=== PATIENT | female | born 1995 | race Caucasian/White ===

== ENCOUNTER 2017-06-20 | Emergency (ER) | payer SELFPAY ==
--- NOTE | 2017-06-20 00:21 | ED Physician Documentation ---
Abdominal Pain - HISTORIAN Historian: patient - HPI Stated Complaint: abdominal pain Chief Complaint: Abdominal Pain Onset: days ago (1) Duration: constant Timing: still present Context: other (she has an extensive GI history ). denies: out of country travel, bad food, recent trauma Severity: moderate Quality: pain, cramping, sharp Associated Symptoms: fever (she states she had one at home not sure of degree ) , nausea, diarrhea. denies: vomiting Exacerbated by: nothing Relieved by: nothing Further Comments: yes (She reports she had a "leaky colon" once and this is exactly how the pain felt. She states the pain is "all over" and she has no relief with OTC meds, position or heat or rest. She states she has had diarrhea today and it "has a terrible odor" She reports a fever at home she is not sure of the degree. She has no burning with urination. She states the pain is "bad" . ) - ROS CONST: no problems GI/: none CVS/RESP: none MS/SKIN/LYMPH: none NEURO/PSYCH: none - SOCIAL HX Smoking History: non-smoker Alcohol Use: none Drug Use: none - FAMILY HX Family History: none - PAST HX Past History: other (GI ) Ischemic Bowel Risk Factors: none Other History: none Surgeries/Procedures: none Immunizations: UTD Home Medications: Ambulatory Orders Medication Instructions Recorded NK [NK] 06/20/17 Allergies/Adverse Reactions: Allergies Allergy/AdvReac Type Severity Reaction Status Date / Time Sulfa (Sulfonamide Allergy Verified 06/20/17 00:21 Antibiotics) - VITAL SIGNS Vital Signs: Vital Signs Temp Pulse Resp BP Pulse Ox 97.8 F 82 16 117/68 99 06/20/17 00:00 06/20/17 03:50 06/20/17 03:50 06/20/17 03:50 06/20/17 03:50 - REVIEWED ASSESSMENTS Nursing Assessment Reviewed: Yes Vitals Reviewed: Yes Progress - Progress Progress: 0125: sleeping in bed. Results discussed. She is requesting no Zofran due to "not working as well as Phenergan" . No vomiting at this time. DG ED Results Lab/Radiology - Lab Results Lab Results: Lab Results 06/20/17 06/20/17 00:42 00:42 WBC 12.50 K/ul H K/ul (4.00-12.00) RBC 4.66 M/ul M/ul (3.90-5.20) Hgb 14.2 g/dL g/dL (12.0-16.0) Hct 42.3 % % (34.5-46.5) MCV 90.6 fl fl (80.0-100.0) MCH 30.6 pg pg (28.0-34.0) MCHC 33.7 g/dL g/dL (30.0-36.0) RDW 12.2 % % (11.3-14.3) Plt Count 346 K/mm3 K/mm3 (130-400) Neut % (Auto) 81.0 % H % (39.0-79.0) Lymph % (Auto) 10.3 % L % (16.0-50.0) [place] % (Auto) 4.6 % % (0.0-11.0) Eos % (Auto) 3.0 % % (0.0-6.8) Baso % (Auto) 0.2 (0.0-1.5) Neut # (Auto) 10.1 # k/uL H # k/uL (1.4-7.7) Lymph # (Auto) 1.3 # k/uL # k/uL (0.6-4.0) [place] # (Auto) 0.6 # k/uL # k/uL (0.0-0.9) Eos # (Auto) 0.4 # k/uL # k/uL (0.0-0.6) Baso # (Auto) 0.0 # k/uL # k/uL (0.0-0.5) Reactive Lymphs % 1.0 % % (0.0-5.0) Reactive Lymphs # 0.1 # k/uL # k/uL (0.0-0.8) Sodium 138 mmol/L mmol/L (136-145) Potassium 3.4 mmol/L L mmol/L (3.5-5.1) Chloride 105 mmol/L mmol/L (98-107) Carbon Dioxide 22 mmol/L mmol/L (22-30) BUN 11 mg/dL mg/dL (7-17) Creatinine 0.60 mg/dL mg/dL (0.52-1.04) Estimated Creat Clear 225 Est GFR ( Amer) > 60 (60 - ) Est GFR (Non-Af Amer) > 60 (60 - ) Glucose 121 mg/dL H mg/dL (74-106) Calcium 8.6 mg/dL mg/dL (8.4-10.2) Total Bilirubin 0.8 mg/dL mg/dL (0.2-1.3) AST 29 U/L U/L (15-46) ALT 35 U/L U/L (13-69) Alkaline Phosphatase 70 U/L U/L (38-126) Total Protein 6.6 g/dL g/dL (6.3-8.2) Albumin 4.0 g/dL g/dL (3.5-5.0) - Radiology Radiology Impressions: FINDINGS: Bibasilar atelectasis is present. No liver spleen lesion is seen. The stomach is fluid distended. The adrenal glands pancreas and gallbladder are normal. There is no aortic aneurysm. Normal appendix is present. Air fluid levels are present in the small bowel and colon probably related to ileus or gastroenteritis. The uterus and ovaries are within normal limits for age. There is levoscoliosis of the lumbar spine. IMPRESSION: Minimal bibasilar atelectasis. Negative appendix Air fluid levels in large and small bowel with a fluid distended stomach most consistent with ileus or gastroenteritis Electronically signed on June 20, 2017 1:17:39 AM CDT by: Ryder Disla - Orders Orders: ED Orders Category Date Time Status IV Started NOW Care 06/20/17 00:[address] ABD & PELVIS W/O CON Stat Exams 06/20/17 Taken CBC/PLATELET/DIFF Stat Lab 06/20/17 00:42 Completed CMP Stat Lab 06/20/17 00:42 Completed UA W/MICRO IF INDICATED Routine Lab 06/20/17 00:25 Ordered URINE HCG Stat Lab 06/20/17 00:26 Ordered 0.9 % Sodium Chloride [Normal Saline] 1,000 ml Med 06/20/17 00:27 Discontinued IV Q1H Ketorolac Tromethamine [Toradol] Med 06/20/17 01:21 Discontinued 30 mg IVP NOW ONE Promethazine HCl [Phenergan] Med 06/20/17 01:21 Discontinued 25 mg IM NOW ONE Abdominal Pain Physical Exam - Physical Exam General Appearance: alert, mild distress EENT: eye inspection normal, ENT inspection normal, pharynx normal, no signs of dehydration NECK: normal inspection RESPIRATORY: no resp distress, chest non-tender, breath sounds normal CVS: reg rate & rhythm, heart sounds normal, equal pulses, no murmur ABDOMEN: soft, normal bowel sounds, no distension, tenderness. No: guarding BACK: normal inspection SKIN: warm/dry, normal color EXTREMITIES: non-tender NEURO: oriented X3, CN's nml as tested, motor nml, sensation nml, cognition normal Vital Signs: Vital Signs Temp Pulse Resp BP Pulse Ox 97.8 F 82 16 117/68 99 06/20/17 00:00 06/20/17 03:50 06/20/17 03:50 06/20/17 03:50 06/20/17 03:50 Discharge Clincal Impression: Gastroenteritis Referrals: Primary Doctor,No [Primary Care Provider] - 2 Days Comments: 1. Call GI dr in AM 2. Clear liquids 3. Zofran 4 mg Take 1 by mouth every 8 hours as needed for nausea 4. Return to ER for any concerns Condition: Stable Disposition: 01 HOME, SELF-CARE Decision to Admit: NO Date of Decison to Admit: 06/20/17 Decision Time: 01:23
[2017-06-20] MEDS: 0.9 % SODIUM CHLORIDE 1,000 ML IV ONE (00:30)
[2017-06-20 00:45] LABS: BASOPHILS % 0.2 (0.0-1.5); MEAN CORPUSCULAR HEMOGLOBIN 30.6 pg (28.0-34.0); MEAN CORPUSCULAR VOLUME 90.6 fl (80.0-100.0); MONOCYTES % 4.6 % (0.0-11.0); NEUTROPHILS # 10.1 # k/uL (1.4-7.7)
[2017-06-20 01:01] LABS: eGFR (African) > 60; eGFR (Non-African) > 60
[2017-06-20] MEDS: PROMETHAZINE HCL 25 MG/ML VIAL IM ONE (01:28)
[2017-06-20] MEDS: KETOROLAC TROMETHAMINE 30 MG/1ML VIAL IVP ONE (01:32)
[2017-06-20 03:55] VITALS: BP 117/68
--- NOTE | 2017-06-20 06:55 | Diagnostic Imaging Report ---
TONY CONTRERAS [facility] [id number] [facility] [address] [place], [place]. [address] Report Submission Date: June 20, 2017 1:17:39 AM CDT Patient Study Name: TRAV BASILIO Date: June 20, 2017 12:49:54 AM CDT Modality Type: CT\SR Gender: F Description: CT ABD PELVIS W/O CO : 93 Institution: [facility] Physician: TONY CONTRERAS CT abdomen and pelvis without contrast Date of study: June 20, 2017 CLINICAL HISTORY: ABDOMINAL PAIN, PAIN STARTED ON 06/19/2017 (Hx) / ITS.REASON Abdominal pain (DICOM Hx) TECHNIQUE: 5 mm contiguous axial images of the abdomen and pelvis non contrast. FINDINGS: Bibasilar atelectasis is present. No liver spleen lesion is seen. The stomach is fluid distended. The adrenal glands pancreas and gallbladder are normal. There is no aortic aneurysm. Normal appendix is present. Air fluid levels are present in the small bowel and colon probably related to ileus or gastroenteritis. The uterus and ovaries are within normal limits for age. There is levoscoliosis of the lumbar spine. IMPRESSION: Minimal bibasilar atelectasis. Negative appendix Air fluid levels in large and small bowel with a fluid distended stomach most consistent with ileus or gastroenteritis Electronically signed on June 20, 2017 1:17:39 AM CDT by: Ryder ARROYO
[2017-06-20 07:55] LABS: APPEARANCE,URINE CLOUDY (CLEAR); COLOR,URINE AMBER (YELLOW); OCCULT BLOOD,URINE NEGATIVE (NEGATIVE); PH URINE 6.5 (5.0 - 8.0); URINE HCG NEGATIVE (NEGATIVE); UROBILINOGEN URINE 0.2 Eu (0.2-1.0)
== END 2017-06-20 03:50 | disposition home or self-care (01) ==
LOC: ED
DX: K52.9 Noninfective gastroenteritis and colitis, unspecified (principal)
CPT/HCPCS: 74176; 80053; 81002; 81025; 85025; J1885; J2550; J7030; 96360; 96372; 96374; 99284; S1016